=== PATIENT | female | born 1980 | race Caucasian/White ===

== ENCOUNTER 2023-12-09 17:47 | Emergency (ER) | payer SELFPAY ==
[~2023-12-09] VITALS: Ht 152.4 cm; Wt 127.0 kg
[2023-12-09 17:51] VITALS: BP 137/87; PULSE 80; RESP 18; TEMP 96.6; O2SAT 97
[2023-12-09] MEDS: IBUPROFEN 800 MG TAB PO ONE (18:12)
[2023-12-09] MEDS: ACETAMINOPHEN/CODEINE 300/30MG 1 TAB PO ONE (18:30)
[2023-12-09] MEDS ORDERED: CYCL-711 PO (19:31)
[2023-12-09] MEDS ORDERED: IBUP-2218 PO (19:31)
== END 2023-12-09 19:43 | disposition home or self-care (01) ==
LOC: MED 17:47
DX: R07.81 Pleurodynia (principal); M54.50 Low back pain, unspecified; R10.2 Pelvic and perineal pain; R03.0 Elevated blood-pressure reading, without diagnosis of hypertension; Z79.899 Other long term (current) drug therapy
CPT/HCPCS: 71101; 72100; 72170; 81025; 99284

== ENCOUNTER 2024-05-26 20:09 | Emergency (ER) | payer MEDICAID ==
[~2024-05-26] VITALS: Ht 157.5 cm; Wt 137.4 kg
[~2024-05-26 20:09] MED LIST: CYCL-711 PO; IBUP-2218 PO
[2024-05-26 20:14] VITALS: BP 146/81; PULSE 80; RESP 18; TEMP 98.2; O2SAT 96
[2024-05-26 21:08] LABS: APPEARANCE,URINE CLEAR (CLEAR); BILIRUBIN,URINE NEGATIVE (NEGATIVE); BLOOD, URINE 3+ (NEGATIVE); COLOR,URINE YELLOW (YELLOW); LEUKOCYTE ESTERASE ,URINE NEGATIVE (NEGATIVE); NITRITE, URINE NEGATIVE (NEGATIVE); PROTEIN,URINE NEGATIVE (NEGATIVE); UGLUCOSE NEGATIVE (NEGATIVE); UROBILINOGEN,URINE 0.2 EU/dL (0.2 - 1)
[2024-05-26 21:17] LABS: RED BLOOD CELL COUNT(AUTO) 4.55 MIL/uL (4.20-5.40); RED CELL DISTRIBUTION WIDTH 13.9 % (11.6-13.7)
[2024-05-26 21:18] LABS: FLU A ANTIGEN negative (NEGATIVE); FLU B ANTIGEN NEGATIVE (NEGATIVE)
[2024-05-26 21:18] LABS: BACTERIA,URINE FEW /HPF (None Seen); SQUAMOUS EPITHELIAL CELL,UR 0-3 (FEW) /LPF (0-3 (FEW)); WBC,URINE 0-5 /HPF (0-5)
[2024-05-26 21:19] LABS: ANION GAP 12.1 (8-16); CREATININE 0.8 mg/dL (0.6-1.3); POTASSIUM 4.1 mmol/L (3.5-5.1)
[2024-05-26 21:21] LABS: BASOPHILS # (AUTO) 0.1 K/uL (0.00-0.22); BASOPHILS % (AUTO) 0.8 % (0.0-2.0); EOSINOPHILS # (AUTO) 0.2 K/uL (0-0.4); EOSINOPHILS % (AUTO) 1.5 % (0.0-4.0); HEMATOCRIT 39.4 % (36-48); HEMOGLOBIN 13.1 g/dL (12.0-16.0); LYMPHOCYTES # (AUTO) 3.7 K/uL (2.5-16.5); LYMPHOCYTES % (AUTO) 34.6 % (20.5-51.1); MEAN CORPUSCULAR HEMOGLOBIN 29 pg (27-31); MEAN CORPUSCULAR HGB CONC 33 g/dL (33-37); MEAN CORPUSCULAR VOLUME 86.6 fL (80-94); MONOCYTES # (AUTO) 0.7 K/uL (0.8-1.0); MONOCYTES % (AUTO) 6.5 % (1.7-9.3); NEUTROPHILS % (AUTO) 56.6 % (42.2-75.2); PLATELET COUNT (AUTO) 291 K/uL (140-450); WHITE BLOOD COUNT (AUTO) 10.7 K/uL (4.8-10.8)
[2024-05-26 21:25] LABS: ALBUMIN 3.3 g/dL (3.4-5.0); BILIRUBIN,DIRECT 0.1 mg/dL (0.0-0.3); TOTAL BILIRUBIN 0.3 mg/dL (0.0-1.0); TOTAL PROTEIN, SERUM 7.3 g/dL (6.4-8.2)
[2024-05-26] MEDS: NACL 0.9% 1,000 ML IV SCH (21:55)
[2024-05-26] MEDS ORDERED: ONDA-188 PO (22:14)
[2024-05-26] MEDS: ACETAMINOPHEN EXTRA STRENGTH 500 MG TAB PO ONE (22:30)
[2024-05-26] MEDS: KETOROLAC 30 MG/ML VIAL IVP ONE (22:31)
[2024-05-26] MEDS: ONDANSETRON 4 MG/2 ML VIAL IVP ONE (22:33)
[2024-05-26 22:55] VITALS: BP 146/81; PULSE 80; RESP 18; TEMP 98.2; O2SAT 96
== END 2024-05-26 22:55 | disposition home or self-care (01) ==
LOC: MED 20:09
DX: B34.9 Viral infection, unspecified (principal); Z20.822 Contact with and (suspected) exposure to COVID-19; R03.0 Elevated blood-pressure reading, without diagnosis of hypertension; Z90.49 Acquired absence of other specified parts of digestive tract; Z79.899 Other long term (current) drug therapy
CPT/HCPCS: 36415; 74176; 80048; 80076; 81001; 83690; 84703; 85025; 87426; 87804; 96361; 96374; 96375; 99285; J1885; J2405; J7030